=== PATIENT | female | born 1960 | race Hispanic/Latino ===

== ENCOUNTER 2019-01-27 18:51 | Emergency (ER) | payer SELFPAY ==
[~2019-01-27] VITALS: Ht 162.6 cm; Wt 70.0 kg
[~2019-01-27 18:51] MED LIST: ACETAMIN325 MG OR; CEPHALEXIN500 MG PO; CIPRO500 MG OR; LORTAB 5 OR; ULTRAM50 M1 PO
[2019-01-27 19:25] LABS: HEMOGLOBIN 11.7 g/dl (12.0-16.0); IMMATURE GRANULOCYTES 0.4 % (0.0-5.0); MEAN CORPUSCULAR HGB 38.1 pG CALC (26.0-32.0); MEAN CORPUSCULAR HGB CONC 33.4 g/L CALC (32.0-36.0); NEUT# 5.24 thou/uL (2.00-7.15); RED BLOOD COUNT 3.07 mill/uL (4.20-5.60); RED CELL DISTRI WIDTH 12.8 % (11.5-15.5)
[2019-01-27 19:35] LABS: INTERNATIONAL NORMALIZED RATIO 1.2 RATIO (0.7-1.3); PROTHROMBIN TIME 12.3 SECONDS (9.0-12.5)
[2019-01-27 19:39] LABS: AMYLASE 44 u/l (30-110); ANION GAP 18 (6-22 (CALC)); BUN 2 mg/dL (7-17); BUN/CREATININE RATIO 6 (12-20 (CALC)); CARBON DIOXIDE 23 mmol/l (22-30); CHLORIDE 96 mmol/l (95-108); CREATININE 0.4 mg/dL (0.5-1.0); ETHYL ALCOHOL 0 mg/dl (0-30); GFR > 60 ML/MIN (>=60 (CALC)); GFR FOR AFR.AMER. > 60 ML/MIN (>=60 (CALC)); LIPASE 136 u/l (23-300); MAGNESIUM 1.6 mg/dL (1.6-2.3); POTASSIUM 3.9 mmol/l (3.5-5.1); SGOT/AST 105 u/l (14-36); SODIUM 133 mmol/l (137-146); TOTAL PROTEIN 8.2 g/dL (6.3-8.2)
[2019-01-27 19:42] LABS: URINE BILIRUBIN - DIPSTICK NEGATIVE (NEGATIVE); URINE BLOOD DIPSTICK NEGATIVE (NEGATIVE); URINE COLOR YELLOW; URINE GLUCOSE - DIPSTICK NEGATIVE (NEGATIVE); URINE KETONE NEGATIVE (NEGATIVE); URINE LEUK ESTERASE NEGATIVE (NEGATIVE); URINE NITRITE - DIPSTICK NEGATIVE (Negative); URINE PH 6.5 (4.5-8.0); URINE PROTEIN - DIPSTICK NEGATIVE (NEG-TRACE); URINE SPECIFIC GRAVITY <=1.005
[2019-01-27 19:46] LABS: BARBITURATES NEGATIVE (NEGATIVE); COCAINE NEGATIVE (NEGATIVE); METHADONE NEGATIVE (NEGATIVE); OXCYCODONE NEGATIVE (NEGATIVE); TETRAHYDROCANNABIONOL NEGATIVE (NEGATIVE); TRICYLIC ANTIDEPRESSANTS NEGATIVE (NEGATIVE)
[2019-01-27 19:47] LABS: ALKALINE PHOSPHATASE 223 u/l (38-126); BILIRUBIN, TOTAL 3.8 mg/dL (0.0-1.4)
[2019-01-27 20:14] LABS: TSH, 3RD GENERATION 2.38 uIU/mL (0.47 - 4.68)
[2019-01-27 22:45] VITALS: BP 124/66
== END 2019-01-27 22:45 | disposition home or self-care (01) | DRG 443 ==
LOC: ED 18:51
PROVIDERS: Family Medicine
DX: R17 Unspecified jaundice (principal)

== ENCOUNTER 2019-02-25 05:38 | Emergency (ER) | payer SELFPAY ==
[~2019-02-25] VITALS: Ht 162.6 cm; Wt 72.7 kg
[2019-02-25 06:11] LABS: HEMATOCRIT 38.6 % (37.0-47.0); HEMOGLOBIN 13.1 g/dl (12.0-16.0); IMMATURE GRANULOCYTES 0.4 % (0.0-5.0); MEAN CELL VOLUME 110.9 fL CALC (80.0-100.0); MEAN CORPUSCULAR HGB 37.6 pG CALC (26.0-32.0); MEAN CORPUSCULAR HGB CONC 33.9 g/L CALC (32.0-36.0); NEUT# 3.88 thou/uL (2.00-7.15); RED BLOOD COUNT 3.48 mill/uL (4.20-5.60); RED CELL DISTRI WIDTH 12.8 % (11.5-15.5)
[2019-02-25 06:28] LABS: ACT PARTIAL THROMBO TIME 28.8 SECONDS (20.0-32.5); INTERNATIONAL NORMALIZED RATIO 1.2 RATIO (0.7-1.3); PROTHROMBIN TIME 12.6 SECONDS (9.0-12.5)
[2019-02-25 06:39] LABS: ALBUMIN 3.8 g/dL (3.2-5.0); ALKALINE PHOSPHATASE 265 u/l (38-126); BUN < 2 mg/dL (7-17); CARBON DIOXIDE 26 mmol/l (22-30); CHLORIDE 107 mmol/l (95-108); CREATININE 0.5 mg/dL (0.5-1.0); GFR > 60 ML/MIN (>=60 (CALC)); GFR FOR AFR.AMER. > 60 ML/MIN (>=60 (CALC)); POTASSIUM 3.6 mmol/l (3.5-5.1); SGOT/AST 86 u/l (14-36); TOTAL PROTEIN 8.3 g/dL (6.3-8.2)
[2019-02-25 06:43] LABS: ANION GAP 13 (6-22 (CALC)); BILIRUBIN, TOTAL 1.6 mg/dL (0.0-1.4); SODIUM 142 mmol/l (137-146)
[2019-02-25 06:52] VITALS: BP 140/74
== END 2019-02-25 06:59 | disposition home or self-care (01) | DRG 151 ==
LOC: ED 05:38
PROVIDERS: Family Medicine
PROC: 2Y41X5Z Packing of Nasal Region using Packing Material (ICD-10-PCS; principal; 2019-02-25)
DX: R04.0 Epistaxis (principal)

== ENCOUNTER 2019-02-27 06:57 | Emergency (ER) | payer SELFPAY ==
[~2019-02-27] VITALS: Ht 162.6 cm; Wt 72.7 kg
[2019-02-27] MEDS ORDERED: POLYTRIM OS (07:20)
[2019-02-27 08:02] VITALS: BP 126/7
== END 2019-02-27 08:04 | disposition home or self-care (01) | DRG 151 ==
LOC: ED 06:57
PROC: 093K7ZZ Control Bleeding in Nasal Mucosa and Soft Tissue, Via Natural or Artificial Opening (ICD-10-PCS; principal; 2019-02-27)
DX: R04.0 Epistaxis (principal); H10.9 Unspecified conjunctivitis

== ENCOUNTER 2019-08-04 | Emergency (ER) | payer SELFPAY ==
[~2019-08-04] MED LIST changes: +POLYTRIM OS
[2019-08-05] MEDS ORDERED: CODEINE/GUAIFEN1 SOL PO (02:05)
== END 2019-08-05 02:18 | disposition home or self-care (01) | DRG 203 ==
DX: J40 Bronchitis, not specified as acute or chronic (principal); R51 Headache

== ENCOUNTER 2019-08-04 13:48 | Emergency (ER) | payer SELFPAY ==
[2019-08-05] MEDS ORDERED: CODEINE/GUAIFEN1 SOL PO (02:05)
== END 2019-08-04 15:23 | disposition left against medical advice (07) | DRG 951 ==
LOC: ED 13:48 → LWOBS 15:22
DX: Z53.21 Procedure and treatment not carried out due to patient leaving prior to being seen by health care provider (principal)

== ENCOUNTER 2020-01-18 12:41 | Emergency (ER) | payer SELFPAY ==
[~2020-01-18 12:41] MED LIST changes: +CODEINE/GUAIFEN1 SOL PO
[2020-01-18] MEDS ORDERED: AMOX/K CLAV875 M1 PO (12:57)
[2020-01-18 13:35] VITALS: BP 112/74
== END 2020-01-18 13:35 | disposition home or self-care (01) | DRG 605 ==
LOC: ED 12:41
DX: S81.051A Open bite, right knee, initial encounter (principal); W54.0XXA Bitten by dog, initial encounter; Y92.009 Unspecified place in unspecified non-institutional (private) residence as the place of occurrence of the external cause

== ENCOUNTER 2020-02-20 12:44 | Emergency (ER) | payer SELFPAY ==
[~2020-02-20] VITALS: Ht 162.6 cm; Wt 70.0 kg
[~2020-02-20 12:44] MED LIST changes: +AMOX/K CLAV875 M1 PO
[2020-02-20 14:13] VITALS: BP 128/63
== END 2020-02-20 14:11 | disposition home or self-care (01) | DRG 556 ==
LOC: ED 12:44
DX: M79.89 Other specified soft tissue disorders (principal)

== ENCOUNTER 2020-07-08 07:59 | Emergency (ER) | payer SELFPAY ==
[~2020-07-08] VITALS: Ht 162.6 cm; Wt 85.0 kg
[2020-07-08 08:19] LABS: HEMATOCRIT 38.6 % (37.0-47.0); HEMOGLOBIN 13.4 g/dl (12.0-16.0); IMMATURE GRANULOCYTES 0.7 % (0.0-5.0); MEAN CELL VOLUME 106.9 fL CALC (80.0-100.0); MEAN CORPUSCULAR HGB 37.1 pG CALC (26.0-32.0); MEAN CORPUSCULAR HGB CONC 34.7 g/dL CAL (32.0-36.0); NEUT# 2.73 thou/uL (2.00-7.15); RED BLOOD COUNT 3.61 mill/uL (4.20-5.60); RED CELL DISTRI WIDTH 12.4 % (11.5-15.5)
[2020-07-08 08:32] LABS: ALBUMIN 4.3 g/dL (3.2-5.0); ALKALINE PHOSPHATASE 238 u/l (38-126); ANION GAP 13 (6-22 (CALC)); BILIRUBIN, TOTAL 1.8 mg/dL (0.0-1.4); BUN < 2 mg/dL (8-23); CARBON DIOXIDE 28 mmol/l (22-30); CHLORIDE 102 mmol/l (95-108); CREATININE 0.4 mg/dL (0.5-1.0); GFR > 60 ML/MIN (>=60 (CALC)); GFR FOR AFR.AMER. > 60 ML/MIN (>=60 (CALC)); POTASSIUM 3.6 mmol/l (3.5-5.1); SODIUM 139 mmol/l (137-146); TOTAL PROTEIN 8.5 g/dL (6.3-8.2)
[2020-07-08 08:44] LABS: SGOT/AST 241 u/l (9-36)
[2020-07-08 12:15] VITALS: BP 122/62
== END 2020-07-08 12:15 | disposition home or self-care (01) | DRG 313 ==
LOC: ED 07:59
PROVIDERS: Family Medicine
DX: R07.9 Chest pain, unspecified (principal)

== ENCOUNTER 2020-08-13 06:19 | Observation (INO) | payer SELFPAY ==
[~2020-08-13] VITALS: Ht 162.6 cm; Wt 62.8 kg
--- NOTE | 2020-08-13 06:50 | NUR ---
EKG DONE/DR TO BEDSIDE/SWABBED FOR INFLUENZA AND COVID/INT STARTED/LABS DRAWN. PT UP TO BR TO OBTAIN A URINE SAMPLE.
--- NOTE | 2020-08-13 07:05 | NUR ---
RECEIVED REPORT FROM YESSENIA MELCHOR.
[2020-08-13 07:28] LABS: URINE BILIRUBIN - DIPSTICK NEGATIVE (NEGATIVE); URINE BLOOD DIPSTICK NEGATIVE (NEGATIVE); URINE COLOR YELLOW; URINE GLUCOSE - DIPSTICK NEGATIVE (NEGATIVE); URINE KETONE NEGATIVE (NEGATIVE); URINE LEUK ESTERASE NEGATIVE (NEGATIVE); URINE NITRITE - DIPSTICK NEGATIVE (Negative); URINE PH 7.5 (4.5-8.0); URINE PROTEIN - DIPSTICK NEGATIVE (NEG-TRACE); URINE SPECIFIC GRAVITY <=1.005; URINE UROBILINOGEN - DIPSTICK 0.2 E.U./dL (0.2)
[2020-08-13 07:30] LABS: HEMATOCRIT 38.7 % (37.0-47.0); HEMOGLOBIN 12.8 g/dl (12.0-16.0); IMMATURE GRANULOCYTES 0.2 % (0.0-5.0); MEAN CORPUSCULAR HGB 35.1 pG CALC (26.0-32.0); MEAN CORPUSCULAR HGB CONC 33.1 g/dL CAL (32.0-36.0); NEUT# 2.83 thou/uL (2.00-7.15); RED BLOOD COUNT 3.65 mill/uL (4.20-5.60); RED CELL DISTRI WIDTH 12.4 % (11.5-15.5)
[2020-08-13 07:34] LABS: ALBUMIN 3.6 g/dL (3.2-5.0); ALKALINE PHOSPHATASE 202 u/l (38-126); ANION GAP 12 (6-22 (CALC)); BILIRUBIN, TOTAL 2.1 mg/dL (0.0-1.4); BUN < 2 mg/dL (8-23); CARBON DIOXIDE 24 mmol/l (22-30); CHLORIDE 104 mmol/l (95-108); CREATININE 0.5 mg/dL (0.5-1.0); GFR > 60 ML/MIN (>=60 (CALC)); GFR FOR AFR.AMER. > 60 ML/MIN (>=60 (CALC)); LIPASE 107 u/l (23-300); POTASSIUM 3.7 mmol/l (3.5-5.1); SGOT/AST 93 u/l (9-36); SODIUM 137 mmol/l (137-146); TOTAL PROTEIN 7.8 g/dL (6.3-8.2)
[2020-08-13 08:06] LABS: D-DIMER 0.62 mg/L (0.19-0.60)
--- NOTE | 2020-08-13 08:15 | NUR ---
PT RESTING. NO DISTRESS. STABLE ON MONITOR. BED IN LOW POSITION. CALL LIGHT WITHIN REACH.
[2020-08-13 08:27] LABS: ACT PARTIAL THROMBO TIME 26.3 SECONDS (20.0-32.5); INTERNATIONAL NORMALIZED RATIO 1.2 RATIO (0.7-1.3); PROTHROMBIN TIME 11.6 SECONDS (9.0-12.5)
--- NOTE | 2020-08-13 09:15 | NUR ---
PT RETURNED FROM ULTRASOUND, ATTACHED TO MONITOR. NO NEEDS OR CONCERNS AT THIS TIME.
--- NOTE | 2020-08-13 09:39 | NUR ---
SBAR PRINTED TO FLOOR
--- NOTE | 2020-08-13 10:30 | NUR ---
REPORT GIVEN TO KINA PADRON ON [facility].
--- NOTE | 2020-08-13 10:32 | NUR ---
REPORT REC FROM Jayne MATHEWS RN
[2020-08-13 10:40] VITALS: BP 123/51
--- NOTE | 2020-08-13 10:42 | NUR ---
PT ARRIVED VIA WC ACCOMPANIED BY A REID RN. A&O X3. NO DISTRESS NOTED. PT DENIES ANY CP AT THIS TIME. STATES SHE GETS "ANXIOUS" SOMETIMES CAUSING HER SOME DISCOMFORT. STATES SHE HAS PERSONAL STRESSFUL SITUATIONS GOING ON AT HOME. #20 LAC PATENT, HEALTHY AND FLUSHED WITH EASE. 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 FRANK SANTOS OFFERED BUT REFUSED. ASSESSMENT COMPLETED. DISCUSSED POC. CALL LIGHT IN REACH. CONTINUE TO MONITOR.
--- NOTE | 2020-08-13 11:57 | NUR ---
PT BACK TO ROOM FROM RADIOLOGY. CALL LIGHT IN REACH. CONTINUE TO MONITOR.
--- NOTE | 2020-08-13 12:13 | NUR ---
PT CONSENTED TO RECEIVE PNEUMONIA VAX, HOWEVER SHES UNDER 63 AND DOES NOT MEET CRITERIA. NOT INDICATED FOR THIS PT TIL AGE 63
--- NOTE | 2020-08-13 15:36 | NUR ---
Luis JON APRN AT BEDSIDE DISCUSSING POC
[2020-08-13 16:19] VITALS: BP 122/66
[2020-08-13 18:32] VITALS: BP 113/62
--- NOTE | 2020-08-13 20:28 | NUR ---
PT MEDICATED ORDERS PROVIDE AND ASSESSMENT COMPLETED AT THIS TIME. PT DENIES ANY PAIN AT THIS TIME. NO S/O DISTRESS NOTED. PT ASKED IF SHE CAN AMBULATE THE [facility] IF SHE WANTS TO, I INFORMED HER THAT SHE CAN, WE JUST ASK FOR HER TO PLACE A MASK ON/MASK PROVIDED.
[2020-08-13 23:57] VITALS: BP 92/54
--- NOTE | 2020-08-14 00:34 | NUR ---
LAB IS W/PT AT THIS TIME. NO S/O DISTRESS NOTED. CALL LIGHT W/IN REACH.
--- NOTE | 2020-08-14 02:15 | NUR ---
PT APPEARS TO BE SLEEPING, NO S/O DISTRESS NOTED AT THIS TIME. LIGHTS AND TV ARE OFF, DOOR IS OPEN.
[2020-08-14 04:17] VITALS: BP 106/59
--- NOTE | 2020-08-14 04:25 | NUR ---
PT C/O HEADACHE, MEDICATION PROVIDED AT THIS TIME. SHE DENIES ANY OTHER NEEDS. V/S ASSESSED AT THIS TIME. CALL LIGHT AT SIDE.
[2020-08-14 04:49] LABS: HEMATOCRIT 36.4 % (37.0-47.0); HEMOGLOBIN 12.3 g/dl (12.0-16.0); IMMATURE GRANULOCYTES 0.2 % (0.0-5.0); MEAN CELL VOLUME 108.3 fL CALC (80.0-100.0); MEAN CORPUSCULAR HGB 36.6 pG CALC (26.0-32.0); MEAN CORPUSCULAR HGB CONC 33.8 g/dL CAL (32.0-36.0); NEUT# 2.42 thou/uL (2.00-7.15); RED BLOOD COUNT 3.36 mill/uL (4.20-5.60); RED CELL DISTRI WIDTH 12.5 % (11.5-15.5)
[2020-08-14 05:09] LABS: ALBUMIN 3.4 g/dL (3.2-5.0); ALKALINE PHOSPHATASE 164 u/l (38-126); ANION GAP 11 (6-22 (CALC)); BUN 4 mg/dL (8-23); BUN/CREATININE RATIO 8 (12-20 (CALC)); CALCULATED LDLCHOLESTEROL 52 mg/dL (62-129 (CALC)); CARBON DIOXIDE 25 mmol/l (22-30); CHLORIDE 105 mmol/l (95-108); CHOLESTEROL HDL RATIO 1.6 (<4.4 (CALC)); CREATININE 0.5 mg/dL (0.5-1.0); GFR > 60 ML/MIN (>=60 (CALC)); GFR FOR AFR.AMER. > 60 ML/MIN (>=60 (CALC)); HDL CHOLESTEROL 107 mg/dL (>=40); MAGNESIUM 1.7 mg/dL (1.6-2.3); POTASSIUM 3.5 mmol/l (3.5-5.1); SGOT/AST 67 u/l (9-36); SODIUM 137 mmol/l (137-146); TOTAL CHOLESTEROL 175 mg/dl (0-199); TOTAL PROTEIN 7.4 g/dL (6.3-8.2); TOTAL TRIGLYCERIDES 80 mg/dl (30-149); VLDL CHOLESTROL 16 mg/dl (1-41 (CALC))
[2020-08-14 05:16] LABS: BILIRUBIN, TOTAL 3.3 mg/dL (0.0-1.4)
[2020-08-14 07:45] VITALS: BP 117/64
--- NOTE | 2020-08-14 07:45 | NUR ---
ASSESSMENT IS COMPLETED: IV SITE IS FREE FROM REDNESS OR EDEMA. HR IS REG,PULSES ARE STRONG X4, ABD IS SOFT WITH ACTIVE BS. BREATH SOUNDS ARE CLEAR,BILATERALLY. TELE MONITOR IN PLACE.
[2020-08-14] MEDS ORDERED: XANAX0.25 MG PO (10:14)
--- NOTE | 2020-08-14 11:25 | NUR ---
IV SITE DISCONTINUED CATHETER INTACT. TELE WAS DISCONTINUED AT 0945. DISCHARGE INSTRUCTIONS GIVEN AND VERBALIZED UNDERSTANDING. HEADACHE IS BETTER AFTER GETTING FIORCET. FOR PAIN. Discharge instructions given. Patient verbalizes understanding of same. Discharged in stable condition via Wheelchair to Home with family. All belongings sent with pt.
[2020-08-14 11:30] VITALS: BP 135/56
== END 2020-08-14 11:25 | disposition home or self-care (01) | DRG 204 ==
LOC: ED 06:19 → ED-I 09:06 → ED 09:35 → MS2 09:36
PROVIDERS: Nurse Practitioner; ADMIT Internal Medicine; ATTEND Internal Medicine
DX: R06.02 Shortness of breath (principal); F41.9 Anxiety disorder, unspecified; K76.0 Fatty (change of) liver, not elsewhere classified; K74.60 Unspecified cirrhosis of liver; F17.200 Nicotine dependence, unspecified, uncomplicated; Z20.822 Contact with and (suspected) exposure to COVID-19
CPT/HCPCS: G0378; J1650; Q9967

== ENCOUNTER 2020-09-21 18:10 | Emergency (ER) | payer SELFPAY ==
[~2020-09-21] VITALS: Ht 162.6 cm; Wt 70.0 kg
[~2020-09-21 18:10] MED LIST changes: +XANAX0.25 MG PO
[2020-09-21 19:13] VITALS: BP 113/77
== END 2020-09-21 19:13 | disposition home or self-care (01) | DRG 151 ==
LOC: ED 18:10
DX: R04.0 Epistaxis (principal)

== ENCOUNTER 2021-09-04 22:45 | Emergency (ER) | payer BC, OTHER ==
[~2021-09-04] VITALS: Ht 162.6 cm; Wt 71.0 kg
[2021-09-04 23:18] VITALS: BP 116/57
== END 2021-09-04 23:20 | disposition home or self-care (01) | DRG 125 ==
LOC: ED 22:45
DX: H11.31 Conjunctival hemorrhage, right eye (principal)

== ENCOUNTER 2021-10-07 15:49 | Emergency (ER) | payer BC | END 2021-10-07 17:31 | disposition left against medical advice (07) | DRG 951 | LOC: ED 15:49 → LWOBS 17:26 | DX: Z53.21 Procedure and treatment not carried out due to patient leaving prior to being seen by health care provider (principal) ==

== ENCOUNTER 2022-01-02 07:44 | Emergency (ER) | payer BC ==
[~2022-01-02] VITALS: Ht 162.6 cm; Wt 70.9 kg
[2022-01-02 07:50] VITALS: BP 111/55
[2022-01-02] MEDS ORDERED: LORAZEPAM0.5 MG PO (07:54)
[2022-01-02] MEDS ORDERED: VOLTAREN1%GEL TOP (09:01)
[2022-01-02 09:08] VITALS: BP 111/55
== END 2022-01-02 09:13 | disposition home or self-care (01) | DRG 556 ==
LOC: ED 07:44
DX: M25.512 Pain in left shoulder (principal); F41.9 Anxiety disorder, unspecified; W01.0XXA Fall on same level from slipping, tripping and stumbling without subsequent striking against object, initial encounter; Y92.009 Unspecified place in unspecified non-institutional (private) residence as the place of occurrence of the external cause

== ENCOUNTER 2022-02-09 13:13 | Emergency (ER) | payer BC ==
[~2022-02-09] VITALS: Ht 162.6 cm; Wt 71.0 kg
[~2022-02-09 13:13] MED LIST changes: +LORAZEPAM0.5 MG PO; +VOLTAREN1%GEL TOP
[2022-02-09] MEDS ORDERED: TRAMADOL HCL50 MG PO (16:23)
[2022-02-09 16:34] VITALS: BP 107/56
== END 2022-02-09 16:44 | disposition home or self-care (01) | DRG 948 ==
LOC: ED 13:13
DX: R60.9 Edema, unspecified (principal); F41.9 Anxiety disorder, unspecified

== ENCOUNTER 2022-05-04 09:00 | Emergency (ER) | payer BC ==
[~2022-05-04] VITALS: Ht 162.6 cm; Wt 71.8 kg
[~2022-05-04 09:00] MED LIST changes: +TRAMADOL HCL50 MG PO
[2022-05-04] MEDS ORDERED: FUROSEMIDE20 MG PO (09:14)
[2022-05-04 09:15] VITALS: BP 122/60
[2022-05-04] MEDS ORDERED: HYDROCODONE BIT1 TA9 (09:15)
[2022-05-04] MEDS ORDERED: HYDROCO/APAP1 TA9 PO (09:28)
== END 2022-05-04 09:52 | disposition home or self-care (01) | DRG 552 ==
LOC: ED 09:00
DX: M54.50 Low back pain, unspecified (principal); F41.9 Anxiety disorder, unspecified

== ENCOUNTER 2022-09-30 06:02 | Emergency (ER) | payer OTHER ==
[~2022-09-30] VITALS: Ht 162.6 cm; Wt 76.0 kg
[~2022-09-30 06:02] MED LIST changes: +FUROSEMIDE20 MG PO; +HYDROCO/APAP1 TA9 PO; +HYDROCODONE BIT1 TA9
[2022-09-30 06:10] VITALS: BP 107/46
[2022-09-30] MEDS ORDERED: HYDROCHLOROT25 MG PO (06:20)
== END 2022-09-30 06:45 | disposition home or self-care (01) | DRG 159 ==
LOC: ED 06:02
DX: K02.9 Dental caries, unspecified (principal)
CPT/HCPCS: J0561

== ENCOUNTER 2022-12-27 22:40 | Emergency (ER) | payer OTHER ==
[~2022-12-27] VITALS: Ht 162.6 cm; Wt 70.0 kg
[~2022-12-27 22:40] MED LIST changes: +HYDROCHLOROT25 MG PO
[2022-12-28 00:35] LABS: BASO% 0.1 % (0-3); HEMATOCRIT 31.5 % (37.0-47.0); HEMOGLOBIN 10.6 g/dl (12.0-16.0); IMMATURE GRANULOCYTES 0.6 % (0.0-5.0); LYMPH% 8.6 % (15-41); MEAN CELL VOLUME 112.1 fL CALC (80.0-100.0); MEAN CORPUSCULAR HGB 37.7 pG CALC (26.0-32.0); MEAN CORPUSCULAR HGB CONC 33.7 g/dL CAL (32.0-36.0); MONO% 3.3 % (2-13); NEUT# 13.84 thou/uL (2.00-7.15); NEUT% 87.4 % (42-76); RED BLOOD COUNT 2.81 mill/uL (4.20-5.60); RED CELL DISTRI WIDTH 14.3 % (11.5-15.5)
[2022-12-28 00:37] LABS: URINE BLOOD DIPSTICK LARGE (NEGATIVE); URINE COLOR YELLOW; URINE GLUCOSE - DIPSTICK NEGATIVE (NEGATIVE); URINE KETONE TRACE mg/dL (NEGATIVE); URINE LEUK ESTERASE SMALL (NEGATIVE); URINE NITRITE - DIPSTICK POSITIVE (Negative); URINE PROTEIN - DIPSTICK TRACE mg/dL (NEG-TRACE); URINE SPECIFIC GRAVITY 1.015
[2022-12-28 00:45] LABS: URINE BACTERIA MODERATE hpf; URINE MUCUS FEW hpf (NONE-FEW); URINE SQUAMOUS EPITHELIAL CELL FEW EPI/hpf (0-FEW)
[2022-12-28 00:51] LABS: ALBUMIN 2.9 g/dL (3.2-5.0); ALKALINE PHOSPHATASE 204 u/l (38-126); AMYLASE 57 u/l (30-110); BUN 6 mg/dL (8-23); BUN/CREATININE RATIO 8 (12-20 (CALC)); CHLORIDE 95 mmol/l (95-108); CREATININE 0.7 mg/dL (0.5-1.0); GFR FOR AFR.AMER. > 60 ML/MIN (>=60 (CALC)); GFR OTHER RACES > 60 ML/MIN (>=60 (CALC)); LIPASE 213 u/l (23-300); POTASSIUM 3.1 mmol/l (3.5-5.1); SGOT/AST 96 u/l (9-36); SODIUM 133 mmol/l (137-146); TOTAL PROTEIN 7.3 g/dL (6.3-8.2)
[2022-12-28 00:54] LABS: ANION GAP 10 (6-22 (CALC)); BILIRUBIN, TOTAL 11.1 mg/dL (0.02-1.3); CARBON DIOXIDE 31 mmol/l (22-30)
[2022-12-28 10:40] VITALS: BP 138/66
== END 2022-12-28 10:45 | disposition short-term general hospital (02) | DRG 446 ==
LOC: ED 22:40
PROVIDERS: Emergency Medicine
DX: K80.00 Calculus of gallbladder with acute cholecystitis without obstruction (principal); D69.6 Thrombocytopenia, unspecified; K70.31 Alcoholic cirrhosis of liver with ascites; F10.229 Alcohol dependence with intoxication, unspecified; F41.9 Anxiety disorder, unspecified
CPT/HCPCS: J2060; Q9967

== ENCOUNTER 2023-02-12 23:21 | Emergency (ER) | payer OTHER ==
[~2023-02-12] VITALS: Ht 162.6 cm; Wt 70.0 kg
[~2023-02-12 23:21] MED LIST changes: +ALDACTONE50 MG PO; +BUMETANIDE1 MG PO; +MIRALAX17 GM PO; +PROZAC20 MG PO
[2023-02-12 23:34] VITALS: BP 112/50
[2023-02-12 23:45] VITALS: BP 99/54
[2023-02-12] MEDS ORDERED: ULTRAM50 MG PO (23:52)
[2023-02-13] VITALS: BP 99/60
== END 2023-02-13 00:14 | disposition home or self-care (01) | DRG 556 ==
LOC: ED 23:21
DX: M79.642 Pain in left hand (principal); M79.641 Pain in right hand; F41.9 Anxiety disorder, unspecified; K74.60 Unspecified cirrhosis of liver

== ENCOUNTER 2023-02-14 07:17 | Day surgery (SDC) | payer OTHER ==
[~2023-02-14] VITALS: Ht 162.6 cm; Wt 66.7 kg
[~2023-02-14 07:17] MED LIST changes: +ULTRAM50 MG PO
[2023-02-14 09:41] VITALS: BP 109/50
== END 2023-02-14 10:00 | disposition home or self-care (01) | DRG 433 ==
LOC: ENDO 07:17 → ORM 12:45
PROVIDERS: ATTEND Internal Medicine Gastroenterology
PROC: 0DB78ZX Excision of Stomach, Pylorus, Via Natural or Artificial Opening Endoscopic, Diagnostic (ICD-10-PCS; principal; 2023-02-14)
DX: K70.31 Alcoholic cirrhosis of liver with ascites (principal); I85.10 Secondary esophageal varices without bleeding; K76.6 Portal hypertension; K29.50 Unspecified chronic gastritis without bleeding; K31.89 Other diseases of stomach and duodenum; K25.9 Gastric ulcer, unspecified as acute or chronic, without hemorrhage or perforation

== ENCOUNTER 2023-03-19 11:00 | Inpatient (IN) | payer OTHER ==
[2023-03-19] VITALS (17 sets, daily range): BP systolic 107–133; BP diastolic 47–71
[~2023-03-19] VITALS: Ht 162.6 cm; Wt 65.0 kg
[2023-03-19 12:21] LABS: BASO% 0.7 % (0-3); EOS% 0.2 % (0-8); HEMATOCRIT 31.3 % (37.0-47.0); HEMOGLOBIN 11.1 g/dl (12.0-16.0); IMMATURE GRANULOCYTES 0.2 % (0.0-5.0); LYMPH% 11.2 % (15-41); MEAN CORPUSCULAR HGB 37.2 pG CALC (26.0-32.0); MEAN CORPUSCULAR HGB CONC 35.5 g/dL CAL (32.0-36.0); MONO% 11.6 % (2-13); NEUT# 3.48 thou/uL (2.00-7.15); NEUT% 76.1 % (42-76); RED BLOOD COUNT 2.98 mill/uL (4.20-5.60); RED CELL DISTRI WIDTH 12.6 % (11.5-15.5)
[2023-03-19 12:36] LABS: INTERNATIONAL NORMALIZED RATIO 1.4 RATIO (0.7-1.3); PROTHROMBIN TIME 14.5 SECONDS (9.0-12.5)
[2023-03-19 12:37] LABS: ACT PARTIAL THROMBO TIME 32.1 SECONDS (20.0-32.5)
[2023-03-19] MEDS ORDERED: OMEPRAZOLE DR40 MG PO (14:06)
[2023-03-19] MEDS ORDERED: FLEXERIL5 M1 PO (14:07)
[2023-03-19] MEDS ORDERED: XANAX1 MG PO (14:07)
[2023-03-19] MEDS ORDERED: TRAZODONE50 MG PO (14:08)
[2023-03-19] MEDS ORDERED: ROPINIROLE1 MG PO (14:09)
[2023-03-19 17:57] LABS: URINE BILIRUBIN - DIPSTICK Negative (NEGATIVE); URINE BLOOD DIPSTICK Negative (NEGATIVE); URINE COLOR Yellow; URINE GLUCOSE - DIPSTICK Negative (NEGATIVE); URINE KETONE Negative (NEGATIVE); URINE NITRITE - DIPSTICK Negative (Negative); URINE PH 7.5 (4.5-8.0); URINE PROTEIN - DIPSTICK Negative (NEG-TRACE); URINE SPECIFIC GRAVITY 1.015; URINE UROBILINOGEN - DIPSTICK 0.2 E.U./dL (0.2)
[2023-03-19 18:05] LABS: URINE LEUK ESTERASE Small (NEGATIVE)
[2023-03-19 18:08] LABS: URINE BACTERIA MANY hpf; URINE SQUAMOUS EPITHELIAL CELL FEW EPI/hpf (0-FEW)
[2023-03-20 00:09] VITALS: BP 107/47
[2023-03-20 03:40] VITALS: BP 105/56
[2023-03-20 05:16] VITALS: BP 105/56
[2023-03-20 05:20] LABS: HEMATOCRIT 28.7 % (37.0-47.0); HEMOGLOBIN 10.3 g/dl (12.0-16.0); MEAN CELL VOLUME 105.5 fL CALC (80.0-100.0); MEAN CORPUSCULAR HGB 37.9 pG CALC (26.0-32.0); MEAN CORPUSCULAR HGB CONC 35.9 g/dL CAL (32.0-36.0); RED BLOOD COUNT 2.72 mill/uL (4.20-5.60); RED CELL DISTRI WIDTH 12.5 % (11.5-15.5)
[2023-03-20 05:56] LABS: ANION GAP 9 (6-22 (CALC)); BUN 10 mg/dL (8-23); BUN/CREATININE RATIO 13 (12-20 (CALC)); CALCULATED LDLCHOLESTEROL 74 mg/dL (62-129 (CALC)); CHLORIDE 98 mmol/l (95-108); CHOLESTEROL HDL RATIO 2.8 (<4.4 (CALC)); CREATININE 0.8 mg/dL (0.5-1.0); GFR FOR AFR.AMER. > 60 ML/MIN (>=60 (CALC)); GFR OTHER RACES > 60 ML/MIN (>=60 (CALC)); HDL CHOLESTEROL 46 mg/dL (39.0-59.0); MAGNESIUM 1.8 mg/dL (1.6-2.3); POTASSIUM 4.5 mmol/l (3.5-5.1); SODIUM 124 mmol/l (137-146); TOTAL CHOLESTEROL 130 mg/dl (0-199); TOTAL TRIGLYCERIDES 46 mg/dl (0-149); VLDL CHOLESTROL 9 mg/dl (1-41 (CALC))
[2023-03-20 05:57] LABS: CARBON DIOXIDE 22 mmol/l (22-30)
[2023-03-20 14:35] LABS: ANION GAP 13 (6-22 (CALC)); BUN 9 mg/dL (8-23); BUN/CREATININE RATIO 8 (12-20 (CALC)); CARBON DIOXIDE 22 mmol/l (22-30); CHLORIDE 93 mmol/l (95-108); CREATININE 1.1 mg/dL (0.5-1.0); GFR FOR AFR.AMER. > 60 ML/MIN (>=60 (CALC)); GFR OTHER RACES 50 ML/MIN (>=60 (CALC)); POTASSIUM 5.1 mmol/l (3.5-5.1); SODIUM 122 mmol/l (137-146)
[2023-03-20 15:29] VITALS: BP 115/56
[2023-03-20 20:28] VITALS: BP 110/60
[2023-03-21] VITALS (7 sets, daily range): BP systolic 88–125; BP diastolic 29–54
[2023-03-21 04:49] LABS: HEMOGLOBIN 10.4 g/dl (12.0-16.0); MEAN CELL VOLUME 105.1 fL CALC (80.0-100.0); MEAN CORPUSCULAR HGB 37.7 pG CALC (26.0-32.0); MEAN CORPUSCULAR HGB CONC 35.9 g/dL CAL (32.0-36.0); RED BLOOD COUNT 2.76 mill/uL (4.20-5.60); RED CELL DISTRI WIDTH 12.3 % (11.5-15.5)
[2023-03-21 04:53] LABS: ALKALINE PHOSPHATASE 145 u/l (38-126); ANION GAP 10 (6-22 (CALC)); BUN 9 mg/dL (8-23); BUN/CREATININE RATIO 13 (12-20 (CALC)); CARBON DIOXIDE 22 mmol/l (22-30); CHLORIDE 98 mmol/l (95-108); CREATININE 0.7 mg/dL (0.5-1.0); GFR FOR AFR.AMER. > 60 ML/MIN (>=60 (CALC)); GFR OTHER RACES > 60 ML/MIN (>=60 (CALC)); MAGNESIUM 1.5 mg/dL (1.6-2.3); POTASSIUM 4.4 mmol/l (3.5-5.1); SGOT/AST 58 u/l (9-36); SODIUM 125 mmol/l (137-146); TOTAL PROTEIN 5.9 g/dL (6.3-8.2)
[2023-03-21 05:10] LABS: ALBUMIN 2.5 g/dL (3.2-5.0)
[2023-03-21] MEDS ORDERED: OMNICEF300 MG PO (12:12)
[2023-03-21] MEDS ORDERED: DOXYCYCLINE100 MG PO (12:14)
[2023-03-21] MEDS ORDERED: CONSTULOSE10 GM/15 M PO (12:49)
== END 2023-03-21 13:17 | disposition home or self-care (01) | DRG 441 ==
LOC: ED 11:00 → ED-I 16:50 → ED 17:05 → MS2 17:06
PROVIDERS: Family Medicine; ADMIT Student in an Organized Health Care Education/Training Program; ATTEND Student in an Organized Health Care Education/Training Program
DX: K76.82 Hepatic encephalopathy (principal); J15.9 Unspecified bacterial pneumonia; N39.0 Urinary tract infection, site not specified; E87.1 Hypo-osmolality and hyponatremia; B96.1 Klebsiella pneumoniae [K. pneumoniae] as the cause of diseases classified elsewhere; K70.30 Alcoholic cirrhosis of liver without ascites; F32.A Depression, unspecified; F41.9 Anxiety disorder, unspecified; D69.59 Other secondary thrombocytopenia; F10.90 Alcohol use, unspecified, uncomplicated; F17.200 Nicotine dependence, unspecified, uncomplicated; Z20.822 Contact with and (suspected) exposure to COVID-19
CPT/HCPCS: J1650; J3475

== ENCOUNTER 2023-06-15 07:24 | Emergency (ER) | payer OTHER ==
[~2023-06-15] VITALS: Ht 162.6 cm; Wt 75.7 kg
[~2023-06-15 07:24] MED LIST changes: +CLINDAMYCIN300 M1 PO; +CONSTULOSE10 GM/15 M PO; +DOXYCYCLINE100 MG PO; +FLEXERIL5 M1 PO; +OMEPRAZOLE DR40 MG PO; +OMNICEF300 MG PO; +ROPINIROLE1 MG PO; +TRAZODONE50 MG PO; +XANAX1 MG PO
[2023-06-15 07:32] VITALS: BP 118/61
[2023-06-15] MEDS ORDERED: HYDROCO/APAP1 TA9 PO (07:43)
[2023-06-15] MEDS ORDERED: METRONIDAZOLE500 MG PO (07:43)
[2023-06-15] MEDS ORDERED: AMOX/K CLAV875 M1 PO (07:43)
[2023-06-15 07:59] VITALS: BP 111/64
[2023-06-15 08:01] VITALS: BP 111/64
== END 2023-06-15 08:01 | disposition home or self-care (01) | DRG 159 ==
LOC: ED 07:24
DX: K03.81 Cracked tooth (principal); F41.9 Anxiety disorder, unspecified; F32.A Depression, unspecified; K74.60 Unspecified cirrhosis of liver; Z87.11 Personal history of peptic ulcer disease

== ENCOUNTER 2024-04-02 09:05 | Day surgery (SDC) | payer MEDICARE, MEDICAID ==
[~2024-04-02] VITALS: Ht 162.6 cm; Wt 73.5 kg
[~2024-04-02 09:05] MED LIST changes: +METRONIDAZOLE500 MG PO
[2024-04-02] MEDS ORDERED: FAMOTIDINE 10MG/ML 2ML SDV IV ONE (09:07)
[2024-04-02] MEDS ORDERED: LACTATED RINGER'S 1,000 ML IV ONE (09:08)
[2024-04-02] MEDS ORDERED: HYDROCO/APAP1 TA9 PO (09:21)
[2024-04-02 10:42] VITALS: BP 118/69
[2024-04-02] MEDS ORDERED: PROPOFOL 500 MG/50 ML VIAL IV ONE (16:26)
[2024-04-02] MEDS ORDERED: LIDOCAINE HCL 2% 2ML SDV IV ONE (16:26)
[2024-04-02] MEDS ORDERED: GLYCOPYRROLATE 0.2 MG/ML IV ONE (16:26)
== END 2024-04-02 10:51 | disposition home or self-care (01) ==
LOC: ORM 09:05
PROVIDERS: ATTEND Internal Medicine Gastroenterology
PROC: 0DB78ZX Excision of Stomach, Pylorus, Via Natural or Artificial Opening Endoscopic, Diagnostic (ICD-10-PCS; principal; 2024-04-02)
DX: K70.30 Alcoholic cirrhosis of liver without ascites (principal); I85.10 Secondary esophageal varices without bleeding; K29.70 Gastritis, unspecified, without bleeding; K76.6 Portal hypertension; K31.89 Other diseases of stomach and duodenum; Z87.11 Personal history of peptic ulcer disease

== ENCOUNTER 2024-04-06 13:21 | Emergency (ER) | payer MEDICARE, MEDICAID ==
[~2024-04-06] VITALS: Ht 162.6 cm; Wt 77.1 kg
[2024-04-06] VITALS (18 sets, daily range): BP systolic 104–134; BP diastolic 43–71
[2024-04-06] MEDS ORDERED: SODIUM CHLORIDE 0.9% 1,000 ML IV ONE (13:45)
[2024-04-06] MEDS ORDERED: MORPHINE SULFATE 4 MG/ML VIAL IV ONE (13:50)
[2024-04-06 14:01] LABS: BASO% 0.7 % (0-3); EOS% 1.3 % (0-8); HEMATOCRIT 35.6 % (37.0-47.0); HEMOGLOBIN 11.6 g/dl (12.0-16.0); IMMATURE GRANULOCYTES 0.1 % (0.0-5.0); LYMPH% 17.4 % (15-41); MEAN CELL VOLUME 96.5 fL CALC (80.0-100.0); MEAN CORPUSCULAR HGB 31.4 pG CALC (26.0-32.0); MEAN CORPUSCULAR HGB CONC 32.6 g/dL CAL (32.0-36.0); MONO% 10.9 % (2-13); NEUT# 4.97 thou/uL (2.00-7.15); NEUT% 69.6 % (42-76); RED BLOOD COUNT 3.69 mill/uL (4.20-5.60); RED CELL DISTRI WIDTH 16.7 % (11.5-15.5)
[2024-04-06 14:19] LABS: ALKALINE PHOSPHATASE 166 u/l (38-126); ANION GAP 10 (6-22 (CALC)); BUN 10 mg/dL (8-23); BUN/CREATININE RATIO 12 (12-20 (CALC)); CARBON DIOXIDE 23 mmol/l (22-30); CHLORIDE 106 mmol/l (95-108); CREATININE 0.9 mg/dL (0.5-1.0); ESTIMATED GFR 71 ML/MIN (>=90 (CALC)); SGOT/AST 55 u/l (9-36); SODIUM 135 mmol/l (137-146); TOTAL PROTEIN 7.7 g/dL (6.3-8.2)
[2024-04-06 14:34] LABS: LIPASE > 20000 u/l (23-300)
== END 2024-04-06 19:11 | disposition short-term general hospital (02) ==
LOC: ED 13:21
PROVIDERS: Family Medicine
DX: K85.10 Biliary acute pancreatitis without necrosis or infection (principal); K80.50 Calculus of bile duct without cholangitis or cholecystitis without obstruction; K82.1 Hydrops of gallbladder; F41.9 Anxiety disorder, unspecified; F32.A Depression, unspecified; K70.30 Alcoholic cirrhosis of liver without ascites
CPT/HCPCS: Q9967

== ENCOUNTER 2024-05-20 23:25 | Emergency (ER) | payer MEDICARE, MEDICAID ==
[~2024-05-20] VITALS: Ht 162.6 cm; Wt 70.0 kg
[2024-05-20] MEDS ORDERED: TAMSULOSIN HCL 0.4 MG CAP PO STA (23:35)
[2024-05-20] MEDS ORDERED: KETOROLAC TROMETHAMINE 30 MG/ML SDV IV ONE (23:35)
[2024-05-20] MEDS ORDERED: SODIUM CHLORIDE 0.9% 1,000 ML IV STA (23:35)
[2024-05-20] MEDS ORDERED: MORPHINE SULFATE 4 MG/ML VIAL IV ONE (23:40)
[2024-05-20] MEDS ORDERED: PROMETHAZINE HCL 25 MG/ML AMP IV ONE (23:40)
[2024-05-20 23:58] LABS: BASO% 0.5 % (0-3); EOS% 1.1 % (0-8); HEMATOCRIT 35.4 % (37.0-47.0); HEMOGLOBIN 11.8 g/dl (12.0-16.0); IMMATURE GRANULOCYTES 0.5 % (0.0-5.0); LYMPH% 13.9 % (15-41); MEAN CORPUSCULAR HGB 35.1 pG CALC (26.0-32.0); MEAN CORPUSCULAR HGB CONC 33.3 g/dL CAL (32.0-36.0); MONO% 4.9 % (2-13); NEUT# 8.23 thou/uL (2.00-7.15); NEUT% 79.1 % (42-76); RED BLOOD COUNT 3.36 mill/uL (4.20-5.60)
[2024-05-20 23:59] LABS: MEAN CELL VOLUME 105.4 fL CALC (80.0-100.0)
[2024-05-21 00:09] LABS: ALBUMIN 3.6 g/dL (3.2-5.0); BILIRUBIN, TOTAL 3.6 mg/dL (0.02-1.3); CREATININE 0.7 mg/dL (0.5-1.0); POTASSIUM 4.5 mmol/l (3.5-5.1)
[2024-05-21] MEDS ORDERED: LACTATED RINGER'S 1,000 ML IV ONE (01:15)
[2024-05-21 02:13] LABS: URINE BILIRUBIN - DIPSTICK Negative (NEGATIVE); URINE BLOOD DIPSTICK Negative (NEGATIVE); URINE GLUCOSE - DIPSTICK Negative (NEGATIVE); URINE KETONE Negative (NEGATIVE); URINE LEUK ESTERASE Negative (NEGATIVE); URINE NITRITE - DIPSTICK Negative (Negative); URINE PROTEIN - DIPSTICK Negative (NEG-TRACE); URINE UROBILINOGEN - DIPSTICK 0.2 E.U./dL (0.2)
[2024-05-21 02:14] LABS: URINE COLOR Yellow
[2024-05-21] MEDS ORDERED: TRAMADOL HCL50 MG PO (02:37)
[2024-05-21 02:44] VITALS: BP 135/59
[2024-05-22] MEDS ORDERED: LORTAB 5/3255 MG PO (01:46)
== END 2024-05-21 02:55 | disposition home or self-care (01) ==
LOC: ED 23:25
PROVIDERS: Family Medicine
DX: K80.00 Calculus of gallbladder with acute cholecystitis without obstruction (principal); K74.60 Unspecified cirrhosis of liver; F41.9 Anxiety disorder, unspecified; F32.A Depression, unspecified
CPT/HCPCS: Q9967

== ENCOUNTER 2024-07-08 08:49 | Emergency (ER) | payer MEDICARE, MEDICAID ==
[~2024-07-08] VITALS: Ht 162.6 cm; Wt 74.0 kg
[~2024-07-08 08:49] MED LIST changes: +BUPROPION150 M3 PO; +LORTAB 5/3255 MG PO; +ONDANSETRON4 MG PO
[2024-07-08] MEDS ORDERED: DEXAMETHASONE SOD. PHOSPHATE 10 MG/ML VIAL IM ONE (09:15)
[2024-07-08] MEDS ORDERED: KETOROLAC TROMETHAMINE 30 MG/ML SDV IM ONE (09:15)
[2024-07-08] MEDS ORDERED: IBUPROFEN200 MG PO (10:35)
[2024-07-08] MEDS ORDERED: PREDNISONE20 MG PO (10:35)
[2024-07-08 10:48] VITALS: BP 126/60
== END 2024-07-08 10:49 | disposition home or self-care (01) ==
LOC: ED 08:49
DX: M54.32 Sciatica, left side (principal); F41.9 Anxiety disorder, unspecified; F32.A Depression, unspecified; K70.30 Alcoholic cirrhosis of liver without ascites

== ENCOUNTER 2024-10-12 18:27 | Emergency (ER) | payer MEDICARE, MEDICAID ==
[~2024-10-12] VITALS: Ht 162.6 cm; Wt 75.7 kg
[2024-10-12] VITALS (7 sets, daily range): BP systolic 119–134; BP diastolic 59–70
[~2024-10-12 18:27] MED LIST changes: +IBUPROFEN200 MG PO; +PREDNISONE20 MG PO
[2024-10-12] MEDS ORDERED: CEPHALEXIN MONOHYDRATE 500 MG/CAP PO ONE (19:25)
[2024-10-12] MEDS ORDERED: KEFLEX500 MG PO (19:33)
== END 2024-10-12 19:50 | disposition home or self-care (01) ==
LOC: ED 18:27
DX: S91.201A Unspecified open wound of right great toe with damage to nail, initial encounter (principal); K74.60 Unspecified cirrhosis of liver; F41.9 Anxiety disorder, unspecified; F32.A Depression, unspecified; W22.09XA Striking against other stationary object, initial encounter